=== PATIENT | male | born 1960 | race Caucasian/White ===

== ENCOUNTER 2021-10-21 14:52 | Outpatient (RCR) | payer MEDICARE, SELFPAY ==
[2021-10-20 22:03] LABS: Basophils Percent Auto 0.6 % (0.0-3.0); Eosinophils Percent Auto 1.2 % (0.0-7.0); Hematocrit 28.3 % (37.0-53.0); Hemoglobin* 10.3 gm/dL (13.5-17.5); Immature Granulocytes Abs Auto 0.02 K/uL (0.00-0.30); Lymphocytes Percent Auto 10.5 % (20-44); Mean Corpuscular HGB Conc 36 gm/dL (32-36); Mean Corpuscular Hemoglobin 35 pg (26-34); Mean Corpuscular Volume 96 fL (80-100); Monocytes Percent Auto 4.7 % (0.0-11.0); Neutrophils Percent Auto 81.8 % (42.0-72.0); Platelet Count* 76 K/uL (140-440); RDW Coefficient of Variation % 14.2 % (11.5-15.5); Red Blood Count 2.95 m/uL (4.30-5.90)
[2021-10-20 22:10] LABS: Chloride* 97 mmol/L (96-114); Potassium* 3.4 mmol/L (3.6-5.1); Sodium* 126 mmol/L (135-149)
[2021-10-20 22:58] LABS: Blood Urea Nitrogen* 25 mg/dL (7-30); Calcium* 7.1 mg/dL (8.4-10.6); Carbon Dioxide* 18 mmol/L (20-32); Creatinine* 1.9 mg/dL (0.5-1.5); Estimated Glomerular Filt Rate 39 ml/min; Glucose* 128 mg/dL (60-115); Magnesium* 1.5 mg/dL (1.5-2.6)
[2021-10-21 00:10] LABS: Slide Review Reflex Yes
[2021-10-21 00:35] LABS: White Blood Count* 1.72 K/uL (4.50-11.00)
[2021-10-21 00:37] LABS: Slide Review Acceptable Review (Acceptable)
[2021-10-21 14:20] LABS: SARS PCR* Negative SARS-CoV-2 (Negative)
[2021-10-21] MEDS: 0.9 % SODIUM CHLORIDE 1000 ml 1,000 ML IV (14:50)
[2021-10-21 15:15] VITALS: BP 85/45; PULSE 125; RESP 32; TEMP 39.4; O2SAT 93
[2021-10-21 15:45] VITALS: BP 85/40; PULSE 119; RESP 32; TEMP 39.7; O2SAT 97
[2021-10-21 16:13] VITALS: BP 80/50; PULSE 117; RESP 28
[2021-10-21 16:20] VITALS: TEMP 40
[2021-10-21] MEDS: ACETAMINOPHEN 325 MG TABLET 650 MG PO (16:20)
--- NOTE | 2021-10-21 16:48 | ONC.NURNOTE ---
See provider note. 2 L NS IV per left 24 g PIV. Tylenol 650mg po x 1 as pt leaving [facility] per ambulance at 1621.
[2021-10-22] MEDS: 0.9 % SODIUM CHLORIDE 1000 ml 1,000 ML IV (08:01)
[2021-10-26 07:28] LABS: CMV Quant PCR Interp Detected (Not Detected); Cytomegalovirus Quant Source Whole Blood
== END 2021-11-05 23:59 | disposition home or self-care (01) ==
LOC: CCIC 14:52
PROVIDERS: Visit Provider Clinical Nurse Specialist
DX: E86.0 Dehydration (principal); Z94.0 Kidney transplant status; I95.9 Hypotension, unspecified; E87.1 Hypo-osmolality and hyponatremia; R19.7 Diarrhea, unspecified; E87.6 Hypokalemia; D64.9 Anemia, unspecified; Z79.01 Long term (current) use of anticoagulants; D84.821 Immunodeficiency due to drugs; Z79.899 Other long term (current) drug therapy; D70.9 Neutropenia, unspecified; D69.6 Thrombocytopenia, unspecified
CPT/HCPCS: 36415; 80048; 83735; 85025; 86664; 87497; 87635; 96360; 96361; 99212; 99214; A9270; J7030

== ENCOUNTER 2021-10-21 16:20 | Outpatient (CLI) | payer MEDICARE, SELFPAY | END 2021-10-21 16:21 | disposition home or self-care (01) | LOC: AMB 11-01 11:38 | PROVIDERS: Visit Provider Family Medicine | DX: R50.9 Fever, unspecified (principal); R19.7 Diarrhea, unspecified; R03.0 Elevated blood-pressure reading, without diagnosis of hypertension | CPT/HCPCS: A0425; A0427 ==